=== PATIENT | male | born 1975 | race Caucasian/White ===

== ENCOUNTER 2018-05-24 16:53 | Inpatient (IN) | payer OTHER ==
[~2018-05-24] VITALS: Ht 167.6 cm; Wt 102.1 kg
[2018-05-24] MEDS ORDERED: SODIUM CHLORIDE 0.9% 1,000 ML IV ONE (17:22)
[2018-05-24] MEDS ORDERED: PANTOPRAZOLE SODIUM 40 MG/VIAL IV ONE ×2 (17:45→19:15)
[2018-05-24] MEDS ORDERED: ONDANSETRON HCL 4MG/2ML INJ IV ONE (17:45)
[2018-05-24] MEDS ORDERED: PANTOPRAZOLE 80 MG in SODIUM CHLORIDE 0.9% 100 ML IV SCH ×2 (17:45→20:15)
[2018-05-24 19:32] LABS: CHLORIDE 109 mEq/L (98-107); ETHANOL BLOOD < 10 mg/dL
[2018-05-24 19:33] LABS: HEMATOCRIT. 36.3 % (42.0-52.0); HEMOGLOBIN. 12.5 g/dL (14.0-18.0); MEAN CORPUSCULAR HEMOGLOBIN 35.4 pg (28.0-32.0); MEAN CORPUSCULAR VOLUME 102.4 fL (80.0-94.0); MEAN PLATELET VOLUME 9.3 fl (7.4-10.4); PLATELET 89 x1000/uL (130-400); RED BLOOD CELL COUNT 3.54 mill/uL (4.7-6.1); RED CELL DISTRIBUTION WIDTH 14.9 % (11.6-14.6)
[2018-05-24 19:34] LABS: INR 1.6; PROTHROMBIN TIME 16.1 sec (9.1-11.1)
[2018-05-24] MEDS ORDERED: OCTREOTIDE ACETATE 100 MCG/ML 1ML IV ONE (20:15)
[2018-05-24 20:31] LABS: PLATELET ESTIMATE DECREASED
[2018-05-24 20:57] LABS: CLARITY URINE CLEAR (CLEAR); COLOR URINE DARK YELLOW (YELLOW); KETONES URINE TRACE (NEGATIVE); LEUKOCYTE ESTERASE URINE NEGATIVE (NEGATIVE); NITRITE URINE NEGATIVE (NEGATIVE); OCCULT BLOOD URINE NEGATIVE (NEGATIVE); PH URINE 6.5 (4.5-8.0); PROTEIN URINE NEGATIVE (NEGATIVE); SPECIFIC GRAVITY URINE 1.019 (1.005-1.030)
[2018-05-24] MEDS ORDERED: KCL 20MEQ/100ML PREMIX 100 ML IV ONE (22:15)
[2018-05-25] VITALS (11 sets, daily range): BP systolic 116–140; BP diastolic 62–87
[2018-05-25] MEDS ORDERED: IPRATROPIUM/ALBUTEROL 0.5-3(2.5)MG/3ML NEB INH PRN (00:15)
[2018-05-25] MEDS ORDERED: CLONIDINE 0.1MG TABLET PO PRN (00:15)
[2018-05-25] MEDS ORDERED: MAGNESIUM/ALUMINUM HYDROXIDE/SIMETHICONE 30ML UDC PO PRN (00:15)
[2018-05-25] MEDS ORDERED: ACETAMINOPHEN 325MG TABLET PO PRN (00:15)
[2018-05-25] MEDS ORDERED: DOCUSATE SODIUM 100MG CAPSULE PO PRN (00:15)
[2018-05-25] MEDS ORDERED: LORAZEPAM 2MG/ML CPJ IV PRN ×2 (00:15→10:00)
[2018-05-25] MEDS ORDERED: ONDANSETRON HCL 4MG/2ML INJ IV PRN (00:15)
[2018-05-25] MEDS ORDERED: MVI, ADULT NO.1 10 ML, FOLIC ACID 1 MG, THIAMINE HCL 100 MG in SODIUM CHLORIDE 0.9% 1,0... IV NR ×4 (02:00)
[2018-05-25 02:02] LABS: CHLORIDE 117 mEq/L (98-107)
[2018-05-25] MEDS: PANTOPRAZOLE 80 MG in SODIUM CHLORIDE 0.9% 100 ML IV SCH ×2 (02:16→13:00)
[2018-05-25] MEDS ORDERED: PANTOPRAZOLE 80 MG in SODIUM CHLORIDE 0.9% 100 ML IV SCH (03:00)
[2018-05-25] MEDS: CHLORDIAZEPOXIDE 25MG CAPSULE PO SCH ×2 (06:34→14:10)
[2018-05-25 07:05] LABS: BASOPHILS % 0.7 % (0.0-2.0); EOSINOPHILS % 2.3 % (0.0-5.0); HEMATOCRIT. 31.6 % (42.0-52.0); HEMOGLOBIN. 10.9 g/dL (14.0-18.0); LYMPHOCYTES % 12.4 % (20.0-50.0); MEAN CORPUSCULAR HEMOGLOBIN 35.1 pg (28.0-32.0); MEAN CORPUSCULAR VOLUME 101.9 fL (80.0-94.0); MEAN PLATELET VOLUME 9.2 fl (7.4-10.4); NEUTROPHILS % 71.6 % (40.0-76.0); PLATELET 76 x1000/uL (130-400); RED CELL DISTRIBUTION WIDTH 14.9 % (11.6-14.6)
[2018-05-25 07:07] LABS: CHLORIDE 117 mEq/L (98-107)
[2018-05-25 07:25] LABS: CREATINE KINASE 518 IU/L (39-308); CREATINE KINASE MB FRACTION 2.7 ng/mL (0.5-3.6); HDL CHOLESTEROL 36 mg/dL (40-59); LDL CHOLESTEROL 44 mg/dL (5-100)
[2018-05-25] MEDS ORDERED: THIAMINE HCL 100MG TABLET PO SCH (09:00)
[2018-05-25] MEDS ORDERED: MULTIVITAMINS,THER W-MINERALS TABLET PO SCH (09:00)
[2018-05-25] MEDS ORDERED: FOLIC ACID 1MG TABLET PO SCH (09:00)
[2018-05-25] MEDS ORDERED: DEXT 5% WATER + KCL 20MEQ/L 1,000 ML IV SCH (11:00)
[2018-05-25 13:13] LABS: HEMATOCRIT 32.2 % (42.0-52.0); MEAN CORPUSCULAR HEMOGLOBIN 35.2 pg (28.0-32.0); PLATELET 87 x1000/uL (130-400); RED BLOOD CELL COUNT 3.13 mill/uL (4.7-6.1); RED CELL DISTRIBUTION WIDTH 15.2 % (11.6-14.6)
[2018-05-25 13:23] LABS: AMMONIA 130 uMol/L (<32)
[2018-05-25 13:24] LABS: CHLORIDE 115 mEq/L (98-107)
[2018-05-25 13:33] LABS: TOTAL IRON BINDING CAPACITY 159 ug/dL (250-450)
[2018-05-25 13:50] LABS: FOLIC ACID (FOLATE) SERUM >20 ng/mL ng/mL (>5.38); VITAMIN B12 SERUM 1783 pg/mL (211-911)
[2018-05-25 14:03] LABS: FERRITIN 720 ng/mL (22-322)
[2018-05-25 14:09] LABS: HEPATITIS B SURFACE ANTIGEN NEGATIVE
[2018-05-25 14:38] LABS: HEPATITIS B CORE AB IGM NEGATIVE
[2018-05-25 14:39] LABS: HEPATITIS A AB IGM NEGATIVE (NEGATIVE)
[2018-05-25 16:25] LABS: SODIUM URINE RANDOM 15 mEq/L
[2018-05-25 16:32] LABS: *AMPHETAMINES SCREEN URINE NEGATIVE (NEGATIVE); *BARBITURATES SCREEN URINE NEGATIVE (NEGATIVE); *BENZODIAZEPINES SCREEN URINE NEGATIVE (NEGATIVE); *COCAINE SCREEN URINE NEGATIVE (NEGATIVE); CANNABINOID URINE SCREEN NEGATIVE (NEGATIVE); OPIATES URINE SCREEN NEGATIVE (NEGATIVE)
[2018-05-25 16:36] LABS: METHADONE URINE SCREEN NEGATIVE (NEGATIVE); PHENCYCLIDINE URINE SCREEN NEGATIVE (NEGATIVE)
[2018-05-25 16:39] LABS: HEMATOCRIT 31.2 % (42.0-52.0); HEMOGLOBIN 10.7 g/dL (14.0-18.0)
[2018-05-25 16:46] LABS: CREATINE KINASE MB FRACTION 2.8 ng/mL (0.5-3.6)
== END 2018-05-25 16:55 | disposition short-term general hospital (02) | DRG 377 ==
LOC: ENRESERV 20:16 → ER 21:35 → 5EST 21:36
PROVIDERS: ADMIT Internal Medicine; ATTEND Internal Medicine
DX: K92.0 Hematemesis (principal); E43 Unspecified severe protein-calorie malnutrition; D68.9 Coagulation defect, unspecified; E87.0 Hyperosmolality and hypernatremia; E87.2 Acidosis; F10.239 Alcohol dependence with withdrawal, unspecified; E66.2 Morbid (severe) obesity with alveolar hypoventilation; M62.82 Rhabdomyolysis; D61.818 Other pancytopenia; D53.9 Nutritional anemia, unspecified; K92.1 Melena; E78.5 Hyperlipidemia, unspecified; K70.30 Alcoholic cirrhosis of liver without ascites; E87.8 Other disorders of electrolyte and fluid balance, not elsewhere classified; E86.0 Dehydration; E87.6 Hypokalemia; I10 Essential (primary) hypertension; Z68.36 Body mass index [BMI] 36.0-36.9, adult
CPT/HCPCS: 36415; 71045; 80048; 80061; 80076; 80305; 82140; 82550; 82553; 82607; 82728; 82746; 83036; 83540; 83550; 83605; 83935; 84145; 84295; 84300; 84443; 84484; 85014; 85018; 85027; 86705; 86709; 86803; 86850; 86900; 87340; 93005; 96361; 96365; 96375; 99291; C9113; G0482; J2354; J2405; J3411; J3480; J3490; J7030; J7050; J7060